=== PATIENT | female | born 1960 | race Caucasian/White ===

== ENCOUNTER 2023-09-28 10:35 | Outpatient (CLI) | payer BC, SELFPAY ==
--- NOTE | ~2023-09-28 | US_ITS ---
EXAMINATION: US thyroid DATE: 09/28/2023 12:59 INDICATION: Mass of neck. TECHNIQUE: Multiple ultrasound images of the thyroid were obtained. COMPARISON: None. FINDINGS: The right thyroid lobe measures 3.9 x 1.5 x 1.5 cm. The left thyroid lobe measures 4.1 x 1.5 x 1.4 c m. In the left thyroid lobe, there is a 5 mm solid, hypoechoic wider than tall nodule with ill-defin ed margin without echogenic foci (TI-RADS TR4). In the right thyroid lobe, there is a 4 mm nodule. IMPRESSION: 1. Small thyroid nodules, likely not clinically significant. No follow-up is needed. Reviewed, dictated and finalized at location A. IMPRESSION: 1. Small thyroid nodules, likely not clinically significant. No follow-up is ne eded.
== END 2023-09-28 10:36 ==
LOC: MICIMG 10:38
PROVIDERS: PCP Nurse Practitioner Family; Visit Provider Nurse Practitioner Family
DX: E04.2 Nontoxic multinodular goiter (principal)
CPT/HCPCS: 76536